=== PATIENT | male | born 1990 | race Caucasian/White ===

== ENCOUNTER 2020-06-19 23:34 | Emergency (ER) | payer BC ==
[2020-06-20 00:41] LABS: ABSOLUTE BASOPHILS # (AUTO) 0.1 10^3/uL (0.0-0.2); ABSOLUTE EOSINOPHILS # (AUTO) 0.1 10^3/uL (0.0-0.6); ABSOLUTE LYMPHOCYTES (AUTO) 2.3 10^3/uL (0.5-4.7); ABSOLUTE MONOCYTES (AUTO) 0.6 10^3/uL (0.1-1.4); ABSOLUTE NEUT (AUTO) 7.6 10^3/uL (1.7-8.2); BASOPHILS % (AUTO) 0.6 % (0-2); EOSINOPHILS % (AUTO) 1.1 % (0-6); HEMATOCRIT 48.7 % (37.9-51.0); HEMOGLOBIN 16.8 g/dL (13.5-17.0); LYMPHOCYTES % (AUTO) 21.7 % (13-45); MEAN CORPUSCULAR HEMOGLOBIN 29.1 pg (27.0-33.4); MEAN CORPUSCULAR HGB CONC 34.5 g/dL (32.0-36.0); MEAN CORPUSCULAR VOLUME 84 fl (80-97); MONOCYTES % (AUTO) 5.5 % (3-13); PLATELET COUNT 255 10^3/uL (150-450); RED BLOOD COUNT 5.78 10^6/uL (4.35-5.55); RED CELL DISTRIBUTION WIDTH 13.5 % (11.5-14.0); SEGMENTED NEUTROPHILS % (AUTO) 71.1 % (42-78); TOTAL CELLS COUNTED % (AUTO) 100 %; WHITE BLOOD COUNT 10.7 10^3/uL (4.0-10.5)
[2020-06-20] MEDS ORDERED: NORMAL SALINE 1000 ML 1,000 ML IV ONE (00:52)
[2020-06-20 01:05] LABS: CREATINE KINASE MB 0.76 ng/mL (<4.55)
[2020-06-20 01:06] LABS: ALBUMIN 4.4 g/dL (3.5-5.0); ALKALINE PHOSPHATASE 50 U/L (38-126); ANION GAP 10 (5-19); ASPARTATE AMINO TRANSFERASE 23 U/L (17-59); BILIRUBIN,TOTAL 0.4 mg/dL (0.2-1.3); BLOOD UREA NITROGEN 12 mg/dL (7-20); CALCIUM 9.3 mg/dL (8.4-10.2); CARBON DIOXIDE 28 mmol/L (22-30); CHLORIDE 102 mmol/L (98-107); CREATINE KINASE 63 U/L (55-170); GLUCOSE 99 mg/dL (75-110); POTASSIUM 3.9 mmol/L (3.6-5.0); TOTAL PROTEIN 7.2 g/dL (6.3-8.2); TROPONIN I < 0.012 ng/mL
[2020-06-20] MEDS ORDERED: DIPHENHYDRAMINE HCL 50 MG/ML VIAL IV ONE (01:24)
[2020-06-20] MEDS ORDERED: PROCHLORPERAZINE EDISYLATE INJ 10 MG/2 ML VIAL IV ONE (01:24)
--- NOTE | 2020-06-20 01:30 | ER Document Report ---
ED General - General Chief Complaint: Near Syncope Stated Complaint: SYCOPE Primary Care Provider: JUAN F CALLAHAN MD [EMERITUS] - Follow up as needed SHANELL FORRESTER PA [Primary Care Provider] - Follow up as needed LESLIE BARRIOS MD [ACTIVE STAFF] - Follow up as needed - [facility] Notes: 29-year-old male history of what patient refers to as migraines presents with episode of near syncope many hours prior to arrival. Patient says she was standing in high environment outside and then felt like he was going to faint which she describes as generalized weakness, lightheadedness, nausea, which prompted patient to go sit down in air conditioning and when he did he felt extremely weak and was unable to do anything for 2 hours. Patient also had onset of nonbloody nonbilious emesis several times and global headache. Patient says he has had headaches like this before over the past 2 years he will have 1 them approximately once a month but over the last several weeks he has had them weekly. He says there not usually associated with vomiting. Patient says that the headache was gradual in onset and felt worse after he had vomited a few times. Patient denies any focal weakness or numbness, change in gait, change in vision or speech, anticoagulation, bleeding diatheses, hypercoagulability history, neck pain or stiffness, fever, abdominal pain, drug use aside from occasional marijuana, chest pain, syncope, trauma, unexplained weight loss, family history. Patient says that he is always been told he has a slow heart rate but is unsure what his baseline is. - Related Data Allergies/Adverse Reactions: No Known Allergies Allergy (Unverified 06/20/20 00:10) Past Medical History - General Information source: Patient, Relative - Social History Smoking Status: Never Smoker Chew tobacco use (# tins/day): No Frequency of alcohol use: Rare Drug Abuse: Marijuana Family History: Reviewed & Not Pertinent Patient has homicidal ideation: No Review of Systems - Review of Systems Notes: REVIEW OF SYSTEMS: CONSTITUTIONAL : Denies fever, chills, or sweats. EENT: Denies recent cold/sinus symptoms, denies throat pain CARDIOVASCULAR: Denies chest pain, AL RESPIRATORY: Denies cough, denies shortness of breath. GASTROINTESTINAL: Denies abdominal pain, nausea/vomiting. GENITOURINARY: Denies difficulty urinating, painful urination.. MUSCULOSKELETAL: Denies neck pain, back pain. SKIN: Denies rash or skin lesions. HEMATOLOGIC : Denies easy bruising or bleeding. LYMPHATIC: Denies swollen, enlarged glands. NEUROLOGICAL: +headache, denies change in gait. PSYCHIATRIC: Denies anxiety or stress or depression. Physical Exam - Vital signs Vitals: Temp Pulse Resp BP Pulse Ox 97.5 F 41 L 20 125/87 H 99 06/19/20 23:45 06/19/20 23:45 06/19/20 23:45 06/19/20 23:45 06/19/20 23:45 - Notes Notes: PHYSICAL EXAMINATION: GENERAL: Very well-appearing, well-nourished, young adult male sitting in stretcher chatting with and nurse without any visible signs of discomfort and in no acute distress. HEAD: Atraumatic, normocephalic. EYES: Left eye prosthesis, right eye extraocular movements intact ENT: nares patent, moist mucous membranes. NECK: Normal range of motion, supple without lymphadenopathy LUNGS: Breath sounds clear to auscultation bilaterally and equal. No wheezes rales or rhonchi. HEART: Bradycardic with regular rhythm, no murmurs rubs or gallops ABDOMEN: Soft, nontender, no guarding, no masses, no CVAT EXTREMITIES: Normal range of motion, no pitting or edema. No cyanosis. NEUROLOGICAL: Awake, alert, conversing appropriately, moves all extremities spontaneously, cranial nerves II through XII intact bilaterally, normal [id number], 5 out of 5 strength in all extremities, normal sensation in all extremities PSYCH: Normal mood, normal affect. SKIN: Warm, Dry, normal turgor, no rashes or lesions noted. Course - Re-evaluation Re-evalutation: 06/20/20 01:32 Patient very well-appearing, says headache but that the symptoms have improved. Bradycardic but rhythm is sinus and patient has known history of bradycardia. Given that patient has had headaches for 2 years and has not had any neuro imaging will obtain CT head as well as rule out any electrolyte abnormalities and check troponin for occult myocarditis, but no other flulike symptoms. Patient will need follow-up with cardiology and neurology outpatient. Will treat headache now and reassess, likely discharge with close outpatient follow- up. 06/20/20 02:21 Patient feels greatly improved after meds for headache, has been on monitor without any events, and sent home this is resolved and he has had no additional episodes of near syncope. I spoke to patient and at length about importance of following up with primary doctor, crop grain or livestock farmer, and neurologist. I have printed out all results and given extensive return to ED precautions which they demonstrated understanding of. Patient ready for discharge. - Vital Signs Vital signs: Temp Pulse Resp BP Pulse Ox 97.7 F 42 L 12 110/73 98 06/20/20 00:11 06/20/20 00:30 06/20/20 02:36 06/20/20 02:36 06/20/20 02:36 - Laboratory Result Diagrams: 06/19/20 23:58 06/19/20 23:58 Laboratory results interpreted by me: 06/19/20 06/19/20 23:58 23:58 WBC 10.7 H RBC 5.78 H Phosphorus 5.0 H - EKG Interpretation by Me Additional EKG results interpreted by me: 06/20/20 00:00 HR 38, sinus bradycardia, benign early repol, normal intervals, no signs of ischemia Discharge - Discharge Clinical Impression: Near syncope, Sinus bradycardia Headache Qualifiers: Headache type: unspecified Headache chronicity pattern: episodic headache Intractability: not intractable Qualified Code(s): R51 - Headache Disposition: HOME, SELF-CARE Additional Instructions: Headache The physician does not feel that the headache you are experiencing has a serious underlying cause. Most headaches are due to emotional stress, with resultant muscle tension (tension headache). Occasionally, headaches are secondary to changes in the blood vessels of the scalp (vascular headache and migraine headache). Sometimes, a headache is the first symptom of another developing illness, such as a viral infection. You have no evidence of stroke, bleeding, meningitis, or other serious cause of your headache. The treatment of headaches varies with the severity and cause of the pain. Not all headaches need pain shots. In fact, there is evidence that using narcotics for headaches may make them worse in the long run. The physician will determine the therapy that's in your best interest. If you develop a fever, if the headache is different from any you've previously experienced, or if the headache progressively worsens, then call your physician at once or go to the emergency room. Near Syncopal Episode Syncope or near syncope (fainting or near-fainting) can occur from many di fferent health problems. Or it can be a simple fainting spell requiring no treatment. It is safe for you to go home, but further evaluation will likely be necessary. Your work-up may include tests for internal bleeding, heart disease, medication problems, or near-strokes. Tests are not always required, however, depending on the nature of your problem. The warning signs of an impending faint include: dizziness, lightheadedness, nausea, hot flashes, tingling, and weakness. If this happens, lay down and put your feet up, then wait until all of these symptoms have passed before standing up again. If these episodes become recurrent, or if you develop chest pain, heart palpitations, mental confusion, blurred vision, or headache, then you should call the physician, or go to the emergency room. Follow-up with a primary doctor, crop grain or livestock farmer, and neurologist within 1 week. Return to the emergency department immediately if you have any worsening pain, worsening headache, inability to keep down fluids, weakness or numbness, change in how you walk/talk/see, fever, chest pain, trouble breathing, fainting, or any other worsening or alarming symptoms. Referrals: SHANELL FORRESTER PA [Primary Care Provider] - Follow up as needed LESLIE BARRIOS MD [ACTIVE STAFF] - Follow up as needed JUAN F CALLAHAN MD [EMERITUS] - Follow up as needed
--- NOTE | 2020-06-20 02:12 | RADIOLOGY REPORT (SQ) ---
EXAM: CT Head Without Intravenous Contrast EXAM DATE/TIME: 06/20/2020 1:40 AM CLINICAL HISTORY: The patient is 29 years old and is Male; headaches vomiting TECHNIQUE: Axial computed tomography images of the head/brain without intravenous contrast. Sagittal and coronal reformatted images were created and reviewed. This CT exam was performed using one or more of the following dose reduction techniques: automated exposure control, adjustment of the mA and/or kV according to patient size, and/or use of iterative reconstruction technique. COMPARISON: No relevant prior studies available. FINDINGS: BRAIN: No obvious signs of acute infarct. No acute hemorrhage. There is asymmetric slight increased prominence of the extra-axial space along the posterior aspect of the left cerebral hemisphere. No obvious intracranial mass. BONES/JOINTS: Unremarkable. No acute fracture. SOFT TISSUES: Unremarkable. SINUSES: Unremarkable as visualized. No acute sinusitis. MASTOID AIR CELLS: Unremarkable as visualized. No mastoid effusion. ORBITS: Calcified structure within the left orbit may represent remnant of the left globe. 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 The right orbit is normal in appearance. IMPRESSION: No acute intracranial findings.
[2020-06-20 03:03] VITALS: BP 110/73
--- NOTE | 2020-06-20 15:21 | EKG REPORT ---
SEVERITY:- OTHERWISE NORMAL ECG - SINUS BRADYCARDIA ST ELEV, PROBABLE NORMAL EARLY REPOL PATTERN : Confirmed by: Norris Reid MD 20-Jun-2020 15:19:45
== END 2020-06-20 03:00 | disposition home or self-care (01) ==
LOC: ER 23:34
DX: R55 Syncope and collapse (principal); R51 Headache; R00.1 Bradycardia, unspecified; R53.1 Weakness; R42 Dizziness and giddiness; R11.0 Nausea; R11.10 Vomiting, unspecified
CPT/HCPCS: 36415; 70450; 80053; 82550; 82553; 83735; 84100; 84443; 84484; 85025; 93005; 93010; 96374; 96375; 99285